=== PATIENT | male | born 1960 | race Caucasian/White ===

== ENCOUNTER 2017-08-28 16:53 | Emergency (ER) | payer BC ==
[2017-08-28 18:46] VITALS: BP 139/91
--- NOTE | 2017-08-28 18:51 | UC ---
HPI Febrile Illness - HPI Summary HPI Summary: 57 year old male with cough. Pt c/o chills/shakes/bodyache and productive cough w/ green/yellow phelgm x3 days. Unsure of fever. body aches the past 40 hours are when the concerning flu like illness started per patient [ End ] - History of Current Complaint Chief Complaint: UCGeneralIllness Time Seen by Provider: 08/28/17 18:50 Hx Obtained From: Patient Timing: Constant Initial Severity: Moderate Aggravating Factors: Nothing Alleviating Factors: Nothing - Additional Pertinent History Current Antibiotics: No - Allergy/Home Medications Allergies/Adverse Reactions: Allergies Allergy/AdvReac Type Severity Reaction Status Date / Time Amoxicillin [From Augmentin] Allergy Unknown Unknown Verified 08/28/17 18:42 Reaction Details Clavulanic Acid Allergy Unknown Unknown Verified 08/28/17 18:42 [From Augmentin] Reaction Details PMH/Surg Hx/FS Hx/Imm Hx Previously Healthy: Yes - Surgical History Surgical History: Yes Surgery Procedure, Year, and Place: skin graft to buttock after skiing injury - Family History Known Family History: Positive: None - Social History Occupation: Employed Full-time Alcohol Use: None Substance Use Type: None Smoking Status (MU): Never Smoked Tobacco - Immunization History Most Recent Influenza Vaccination: 2017 Review of Systems Constitutional: Fever, Chills, Fatigue ENT: Ear Ache, Nasal Discharge Musculoskeletal: Myalgia Is Patient Immunocompromised?: No All Other Systems Reviewed And Are Negative: Yes Physical Exam Triage Information Reviewed: Yes Appearance: Well-Appearing, No Pain Distress, Well-Nourished Vital Signs: Initial Vital Signs Temp 99.2 F 08/28/17 18:42 Pulse 81 08/28/17 18:42 Resp 16 08/28/17 18:42 BP 139/91 08/28/17 18:42 Pulse Ox 95 08/28/17 18:42 Vital Signs Reviewed: Yes Eye Exam: Normal ENT Exam: Normal Dental Exam: Normal Neck exam: Normal Neck: Positive: 1 Respiratory Exam: Normal Cardiovascular Exam: Normal Musculoskeletal Exam: Normal Neurological Exam: Normal Psychological Exam: Normal Skin Exam: Normal Course/Dx - Course Assessment/Plan: (+) flu -- pt requesting med - Diagnoses Clinic Provider Diagnoses: flu Discharge - Discharge Plan Condition: Good Disposition: HOME Prescriptions: Oseltamivir Phosphate [Tamiflu] 75 mg PO BID #[id number] cap Patient Education Materials: Influenza (ED) Referrals: Tyron Humphrey MD [Primary Care Provider] - 4 Days
== END 2017-08-28 19:58 | disposition home or self-care (01) ==
LOC: UCCORT 16:53
DX: J11.1 Influenza due to unidentified influenza virus with other respiratory manifestations (principal); Z88.1 Allergy status to other antibiotic agents
CPT/HCPCS: 87502; 99202; G0463